=== PATIENT | female | born 1985 | race Caucasian/White ===

== ENCOUNTER 2021-02-08 12:13 | Emergency (ER) | payer OTHER ==
[~2021-02-08 12:13] MED LIST: BENTYL 20MG TAB20 MG PO; CLINDAMYCIN HC300 MG PO; COLACE 100MG C100 MG PO; IBU800 MG PO; NORCO 7.5-3251 EACH PO; ONDANSETRON ODT4 MG PO; PROTONIX 40 MG40 M1 PO; PROTONIX40 MG PO; ZOFRAN ODT 4 MG4 MG PO; ZOFRAN4 MG PO
[2021-02-08 13:29] LABS: HEMOGLOBIN 14.9 gm/dl (12.3-15.3); RED BLOOD COUNT 4.93 M/UL (4.00-5.10); WHITE BLOOD COUNT 9.5 K/UL (4.5-11.0)
[2021-02-08 13:57] LABS: BUN/CREATININE RATIO 10 (0-10)
[2021-02-08] MEDS ORDERED: PROTONIX40 MG PO (15:39)
[2021-02-08] MEDS ORDERED: CEPHALEXIN500 MG PO (15:39)
[2021-02-08] MEDS ORDERED: ONDANSETRON ODT4 MG SL (15:39)
== END 2021-02-08 16:22 | disposition home or self-care (01) ==
LOC: ER1 12:13
PROVIDERS: Physician Assistant
DX: N39.0 Urinary tract infection, site not specified (principal); Z90.49 Acquired absence of other specified parts of digestive tract; F17.210 Nicotine dependence, cigarettes, uncomplicated; Z79.899 Other long term (current) drug therapy
CPT/HCPCS: 80053; 81001; 83690; 84703; 85025; 96374; 96375; 99284; C9113; J1885; J2405; J7030